=== PATIENT | male | born 1975 | race Caucasian/White ===

== ENCOUNTER 2022-02-01 06:15 | Day surgery (SDC) | payer OTHER ==
[~2022-02-01] VITALS: Ht 172.7 cm; Wt 86.8 kg
[~2022-02-01 06:15] MED LIST: ADDERALL 10 MG10 MG PO; ADDERALL XR 3030 MG PO; CIALIS10 MG PO
--- NOTE | 2022-02-01 08:14 | NUR ---
02/01/22 0814 Margie Mckeon 0811- PT ARRIVES TO PACU AROUSABLE TO STIMULI. PT IS ABLE TO ANSWER QUESTIONS AND REPORTS NO PAIN OR NAUSEA. PT FALLS INSTANTLY BACK TO SLEEP. RESP EVEN AND UNLABORED. OXYGEN SAT LOW TO MID 90'S ON 2L VIA CO2 NC. 0813- PT PASSING FLATUS.
--- NOTE | 2022-02-02 05:53 | OR ---
[facility] [address] [place], [place] [address] Signed DATE OF OPERATION: 02/01/2022 SURGEON: Son Mancuso MD PREOPERATIVE DIAGNOSIS: Maternal grandfather with colon cancer at age 38. POSTOPERATIVE DIAGNOSES: 1. Minimal internal hemorrhoids. 2. 4 mm polyp at 45 cm. 3. 7 mm polyp at 30 cm (snare). 4. 4 mm polyp at 27 cm (clip). PROCEDURE: Colonoscopy with hot biopsy and application of clip. ESTIMATED BLOOD LOSS: Minimal. INDICATIONS: ASHLEY is a 46-year-old gentleman asked to see me for his initial colonoscopy. He has no lower GI complaints. His maternal grandfather had colon cancer at age 38. He had reviewed this with his primary care provider. He was therefore asked by his primary care provider to come see me for his initial screening colonoscopy. In the office, I gave ASHLEY a pamphlet on colonoscopy. We reviewed the nature of that test. There is risk including, but not limited to gas bloating, crampy abdominal pain, bleeding, perforation requiring surgery, and missed diagnosis. We also discussed the need for IV conscious sedation. ASHLEY requires Adderall for his attention deficit disorder. Consequently, we did ask him to stop that a few days prior to the procedure. Even then, he took a large amount of Versed and fentanyl. In the future, he certainly would be better served with monitored anesthesia care and propofol infusion. He had expressed understanding and wished to proceed. PROCEDURE NOTE: ASHLEY was taken into our endoscopy suite and placed in the left lateral decubitus position. He was given a total of 15 mg of Versed and 200 mcg of fentanyl. We had to get clear up to 11 mg of Versed and 200 mcg fentanyl in order to advance the scope. In fact, our anesthesia provider was on the way in case we were unable to advance the scope any further. Fortunately, ASHLEY was very easy to pass the scope from a technical standpoint. His prep had been quite excellent. We were able to get the scope right into the cecum Electronically Signed By: SON MANCUSO MD 02/02/22 0553 PATIENT NAME: DAHLIA SIMS OPERATIVE REPORT DATE OF : 79 REPORT #: [id number] PHYSICIAN: SON MANCUSO MD PCP: DIANA BECKWITH MD REPORT IS CONFIDENTIAL AND NOT TO BE RELEASED WITHOUT AUTHORIZATION [facility] [address] [place] [id number] Signed itself. We could easily see the appendiceal orifice and the ileocecal valve. The scope was then slowly withdrawn. We took pictures throughout for photodocumentation. The three polyps above were all removed with the help of hot biopsy forceps. We did use the snare at 30 cm. He had just a little bleeding at 27 cm, so we applied a clip with good hemostasis. The rectum itself was unremarkable. There was no diverticulosis. Upon retroflexion of the scope, he has minimal internal hemorrhoid tissue. After this, the gas was suctioned out and colonoscope removed. Overall, ASHLEY tolerated the procedure well. RECOMMENDATIONS: I will see ASHLEY back in my office in 7 to 14 days to review his results. In the future, he really needs monitored anesthesia care with propofol. Son Mancuso MD ALB/MODL /[id number] cc: MD Diana Hernandez MD Copies: SON MANCUSO MD, LOHITH VEERAPPA MD ~ Electronically Signed By: SON MANCUSO MD 02/02/22 0553 PATIENT NAME: DAHLIA SIMS OPERATIVE REPORT DATE OF : 79 REPORT #: [id number] PHYSICIAN: SON MANCUSO MD PCP: DIANA BECKWITH MD REPORT IS CONFIDENTIAL AND NOT TO BE RELEASED WITHOUT AUTHORIZATION
--- NOTE | 2022-02-02 16:59 | PATH ---
[facility] [address] [place], [place] [address] Signed SPECIMEN(S): A COLON POLYP AT 45 CM SPECIMEN(S): B COLON POLYP AT 27 CM SPECIMEN(S): C COLON POLYP AT 30 CM SPECIMEN SOURCE: A. COLON POLYP AT 45 CM B. COLON POLYP AT 27 CM C. COLON POLYP AT 30 CM CLINICAL HISTORY: Screening colonoscopy. Dx: Polyps, internal hemorrhoids. FINAL PATHOLOGIC DIAGNOSIS: A. Colon, polyp at 45 cm, polypectomy: - Tubular adenoma. - Negative for high-grade dysplasia or malignancy. B. Colon, polyp at 27 cm, polypectomy: - Tubular adenoma. - Negative for high-grade dysplasia or malignancy. C. Colon, polyp at 30 cm, polypectomy: - Fragments of tubular adenoma. - Negative for high-grade dysplasia or malignancy. NAL:cml:C2NR MICROSCOPIC EXAMINATION: Histologic sections of all submitted blocks are examined by light microscopy. These findings, together with the gross examination, support the pathologic diagnosis. GROSS DESCRIPTION: Three specimens are received in three containers, labeled "TH." A. The specimen, labeled "TH, colon polyp at 45 cm," is received in formalin and consists of one amezcua soft tissue fragment that measures 0.2 cm in greatest dimension. The specimen is entirely submitted in cassette (A1). B. The specimen, labeled "TH, colon polyp at 27 cm," is received in formalin and consists of one amezcua soft tissue fragment that measures 0.2 cm in greatest dimension. The specimen is entirely submitted in cassette (B1). C. The specimen, labeled "TH, colon polyp at 30 cm," is received in formalin and consists of three amezcua soft tissue fragments that measure 0.1-0.2 cm in PATIENT NAME: DAHLIA SIMS PATHOLOGY DATE OF : 79 REPORT #: [id number] PHYSICIAN: ROSEMARY PATHOLOGY PCP: DIANA BECKWITH MD REPORT IS CONFIDENTIAL AND NOT TO BE RELEASED WITHOUT AUTHORIZATION [facility] [address] [id number] Signed greatest dimension. The specimen is entirely submitted in cassette (C1). JS (under the direct supervision of a pathologist) The Gross Description was prepared using a voice recognition system. The report was reviewed for accuracy; however, sound-alike word errors, addition and/or deletions may occur. If there is any question about this report, please contact Client Services. PERFORMING LABORATORY: The technical component was performed by [facility] [address] (CLIA# [id number]). Professional interpretation was performed by [employer] [facility], [address] [address] (CLIA# [id number]). Diagnostician: Inga Marcelino MD Pathologist Electronically Signed 02/02/2022 Copies: ~ PATIENT NAME: DAHLIA SIMS PATHOLOGY DATE OF : 79 REPORT #: [id number] PHYSICIAN: RSOEMARY BARNES PCP: DIANA BECKWITH MD REPORT IS CONFIDENTIAL AND NOT TO BE RELEASED WITHOUT AUTHORIZATION
== END 2022-02-01 09:24 | disposition home or self-care (01) ==
LOC: DS 06:15 → OPS 06:15 → DS 08:15 → OPS 09:24
PROVIDERS: ATTEND Colon & Rectal Surgery
PROC: 0DBE8ZX Excision of Large Intestine, Via Natural or Artificial Opening Endoscopic, Diagnostic (ICD-10-PCS; 2022-02-01)
PROC: 0DBE8ZX Excision of Large Intestine, Via Natural or Artificial Opening Endoscopic, Diagnostic (ICD-10-PCS; principal; 2022-02-01 07:30)
DX: Z12.11 Encounter for screening for malignant neoplasm of colon (principal); D12.6 Benign neoplasm of colon, unspecified; K64.8 Other hemorrhoids; Z80.0 Family history of malignant neoplasm of digestive organs; E78.5 Hyperlipidemia, unspecified; F41.9 Anxiety disorder, unspecified
CPT/HCPCS: 99153; G0500; J2250; J3010; J7121